=== PATIENT | male | born 1945 | race Caucasian/White ===

== ENCOUNTER 2016-12-28 17:17 | Observation (INO) | payer MEDICARE, BC ==
[~2016-12-28] VITALS: Ht 177.8 cm; Wt 122.5 kg
[~2016-12-28 17:17] MED LIST: ADVAIR 250/501 DISK; ASPIRIN325 MG PO; BACTRIM DS TABL1 TAB PO; CELEXA10 MG PO; DYRENIUM50 MG; HEMOCYTE-F TABL1 TAB PO; K-DUR20 MEQ PO; LASIX40 MG PO; LOPRESSOR25 MG PO; MAXZIDE-25 MG T1 TAB PO; NORCO 5/325 TAB1 TA1 PO; PRAVACHOL20 MG PO; PRILOSEC20 MG PO; SPIRIVA18 MCG
--- NOTE | 2016-12-28 17:35 | NUR ---
TRANSFERED FOM ADMISSIONS BY W/Bridger MOYERINTED TO ROOM. CALL LIGHT IN REACH. WILL CONT. PLAN OF CARE.
[2016-12-28 17:44] VITALS: BP 145/77; BMI 38.8
[2016-12-28] MEDS ORDERED: ADVAIR 250/501 DISK INH (17:53)
[2016-12-28] MEDS ORDERED: INSPIRATION ELI1 PK1 INH (17:54)
[2016-12-28] MEDS ORDERED: PROAIR HFA8.5 GM INH (17:55)
[2016-12-28] MEDS ORDERED: CELEXA40 MG PO (18:00)
[2016-12-28 18:15] LABS: CKMB 2.4 U/L (0.0-3.6); CREATINE KINASE 197 UL (21-232)
[2016-12-28 18:17] LABS: TROPONIN-I < 0.017 ng/mL (0.000-0.060)
[2016-12-28 19:00] VITALS: BP 128/61
--- NOTE | 2016-12-28 20:30 | NUR ---
RESTING IN BED. SALINE LOCK TO BE STARTED. ALERT/ORIENTED. O2 @ 2L/NC SR PER TELEMETRY. DENIES CHEST PAIN OR DISCOMFORT. INSTRUCTED ON NPO AFTER MIDNIGHT FOR POTENTIAL ANGIOGRAM IN AM. CALL LIGHT IN REACH. CPOC.
[2016-12-28 23:00] VITALS: BP 138/75
--- NOTE | 2016-12-29 03:42 | NUR ---
RESTING IN BED WITH NO DISTRESS. CPOC. CALL LIGHT IN REACH.
[2016-12-29 06:42] VITALS: BP 138/67
[2016-12-29 08:44] VITALS: BP 142/74
[2016-12-29 09:52] VITALS: Ht 177.8 cm; Wt 122.5 kg
[2016-12-29] MEDS ORDERED: ZPAK PO (11:45)
[2016-12-29 12:26] VITALS: BP 152/80
--- NOTE | 2016-12-29 12:47 | NUR ---
Patient Name: MOISE MARTINEZ Admission Status: Elective Accout number: [id number] Admission Date: 12-28-2016 : 1945 Admission Diagnosis: Attending: KENYA Current LOS: 1 Anticipated DC Date: 12-29-2016 Planned Disposition: Home Primary Insurance: MEDICARE A & B Discharge Planning Comments: * Is the patient Alert and Oriented? Yes 0 * How many steps to enter\exit or inside your home? 6 0 * PCP DR JERRY 0 * Pharmacy [facility] [address] 0 * Preadmission Environment Home with Family 0 * ADLs Independent 0 * Equipment CPAP Nebulizer Oxygen 0 * Other Equipment HOME AND PORTABLE OXYGEN [facility] MEDICAL EQUIPMENT PROVIDER 0 * List name and contact numbers for known caregivers / representatives who currently or will assist patient after discharge: GEMA MARTINEZ, SPOUSE, 0 * Community resources currently utilized None 0 * Please name any agencies selected above. NONE 0 * Additional services required to return to the preadmission environment? No 0 * Can the patient safely return to the preadmission environment? Yes 0 * Has this patient been hospitalized within the prior 30 days at any hospital? No 0 CM MET WITH PT IN ROOM TO DISCUSS DISCHARGE PLANNING AND NEEDS. PT REPORTS LIVING AT HOME INDEPENDENTLY WITH SPOUSE. PT HAS CPAP, HOME AND PORTABLE OXYGEN AND NEBULIZZER FROM [facility]. PT HAS NO OUTSIDE SERVICES ASSISTING IN THE HOME. CM DISCUSSED AVAILABILITY OF HOME HEALTH, REHAB SERVICES AND MEDICAL EQUIPMENT. PT DENIES DISCHARGE NEEDS, REPORTS HIS SPOUSE WILL PICK HIM UP FOR DISCHARGE HOME. Special Education Associate: Ha Lobo
--- NOTE | 2016-12-29 13:02 | NUR ---
ORDERS RECIEVED FOR PT TO BE DISCHARGED. INSTRUCTIONS GIVEN TO PATIENT AND .BOTH VERBALIZE UNDERSTANDING. PT HAS A RX FOR ANTIBIOTICS. IV DC WITH TIP INTACT. TO CAR [facility]IA [employer].
--- NOTE | 2016-12-31 07:48 | DS ---
PATIENT:MOISE MARTINEZ :[birth year] MEDICAL RECORD: [id number] DISCHARGE SUMMARY ADMISSION DATE: 12/28/16 DISCHARGE DATE: 12/29/16 DATE OF ADMISSION: 12/28/2016 DATE OF DISCHARGE: 12/29/2016 ADMITTING DIAGNOSES: Chest pain, shortness of breath. HOSPITAL COURSE: This is a gentleman that was seen at the urgent care, admitted with diagnoses as outlined above. Details are well-outlined in the history of the present illness, H&P. All events, lab procedures, diagnostic testing are well documented in the records. The patient was admitted, appropriate home medicines continued. Dr. Shaan Robbins consulted for cardiology management. His recommendations were followed. He was found stable from a cardiac standpoint, did not need any cardiac catheterization. He does not have any chest pain. Cardiac enzymes negative. The abnormal EKG felt possibly secondary to incomplete left bundle branch block. Dr. Robbins feels he can be discharged home. He is afebrile. He is not coughing up any phlegm. He feels good. No shortness of breath, no chest pain. He is ambulating the entire length of the nurses' station. He wants to go home. He is dismissed home. He will be sent home on a Z-Mikey. He has had no fever here. Chest x-ray showed a possible infiltrate on the right. We will have him follow up with house calls. DIAGNOSES: Include possible right pneumonia, abnormal EKG secondary to incomplete left bundle branch block, coronary artery disease. Greater than 30 minutes was spent on this discharge. TRANSINT:[id number] Voice Confirmation ID: [id number] DOCUMENT ID: [id number] Dictated By: ANTONIO BARRERA RN I have interviewed/examined the above patient and agree with these documented findings. YONATAN GUALLPA MD at 0748 CC: [id number] DICTATION DATE: 12/29/16 1546 MEDICATION SPECIALIST: 12/30/16 [id number] DIS IN 12/29/16 [facility] [address] [place] [address]
== END 2016-12-29 13:05 | disposition home or self-care (01) ==
LOC: D.M2 17:17 → OBSVTIME 17:18 → D.M2 12-29 13:05
PROVIDERS: ADMIT Family Medicine
DX: R07.9 Chest pain, unspecified (principal); J44.9 Chronic obstructive pulmonary disease, unspecified; I25.10 Atherosclerotic heart disease of native coronary artery without angina pectoris; I10 Essential (primary) hypertension; E78.5 Hyperlipidemia, unspecified; R94.31 Abnormal electrocardiogram [ECG] [EKG]; I44.7 Left bundle-branch block, unspecified; F32.9 Major depressive disorder, single episode, unspecified; Z95.1 Presence of aortocoronary bypass graft

== ENCOUNTER → 2019-03-27 12:23 | Outpatient (CLI) | payer OTHER ==
[2016-12-29 09:52] VITALS: BMI 38.7
[~2019-03-27 12:23] MED LIST changes: +ADVAIR 250/501 DISK INH; +CELEXA40 MG PO; +INSPIRATION ELI1 PK1 INH; +PROAIR HFA8.5 GM INH; +ZPAK PO
== END | disposition home or self-care (01) ==
LOC: D.HCCARDIO 12:23
PROVIDERS: ATTEND Internal Medicine Cardiovascular Disease
DX: I25.810 Atherosclerosis of coronary artery bypass graft(s) without angina pectoris (principal)

== ENCOUNTER → 2020-04-05 08:34 | Outpatient (CLI) | payer OTHER ==
[2016-12-29 09:52] VITALS: BMI 38.7
== END | disposition home or self-care (01) ==
LOC: D.HCCECHO 08:30
PROVIDERS: ATTEND Internal Medicine Cardiovascular Disease
DX: I25.10 Atherosclerotic heart disease of native coronary artery without angina pectoris (principal)